=== PATIENT | female | born 1985 | race Caucasian/White ===

== ENCOUNTER 2023-01-27 09:36 | Observation (INO) | payer MEDICAID ==
[~2023-01-27] VITALS: Ht 154.9 cm; Wt 73.1 kg
[2023-01-27 10:07] LABS: HCG,QUAL RESULT NEGATIVE (NEGATIVE)
[2023-01-27] MEDS ORDERED: NS IRRIG SOLN 1000 ML IR ONE (11:16)
[2023-01-27] MEDS ORDERED: ONDANSETRON HCL 4 MG/2 ML VIAL ONE (11:16)
[2023-01-27] MEDS ORDERED: SEVOFLURANE 15 MIN GAS INH ONE (11:16)
[2023-01-27] MEDS ORDERED: METOCLOPRAMIDE HCL 10 MG/2 ML VIAL ONE (11:16)
[2023-01-27] MEDS ORDERED: PROPOFOL 200MG/ 20ML VIAL (DIPRIVAN) IV ONE (11:16)
[2023-01-27] MEDS ORDERED: LIDOCAINE/EPI 1% 1:100000 20 ML VIAL ONE (11:16)
[2023-01-27] MEDS ORDERED: LR 1,000 ML IV.SOLN IV ONE (11:16)
[2023-01-27] MEDS ORDERED: SUCCINYLCHOLINE CHLORIDE 20 MG/ML(QUELICIN) ONE (11:16)
[2023-01-27] MEDS ORDERED: KETOROLAC TROMETHAMINE 30 MG VIAL ONE (11:16)
[2023-01-27] MEDS ORDERED: ROCURONIUM BROMIDE 10 MG/ML (ZEMURON) ONE (11:16)
[2023-01-27] MEDS ORDERED: OXYMETAZOLINE HCL 0.05% NASAL SPRAY NS ONE (11:16)
[2023-01-27] MEDS ORDERED: MIDAZOLAM HCL 2 MG/2 ML VIAL (VERSED) ONE (11:16)
[2023-01-27] MEDS ORDERED: BACITRACIN ZINC 15 GM TOPICAL OINTMENT TP ONE (11:16)
[2023-01-27] MEDS ORDERED: WATER FOR IRRIGATION,STERILE 1,000 ML IRRIG.SOLN IR ONE (11:16)
[2023-01-27] MEDS ORDERED: fentaNYL CITRATE/PF 100 MCG/2 ML AMP ONE (11:16)
[2023-01-27] MEDS ORDERED: ONDANSETRON 4 MG ODT TAB PO PRN ×2 (14:15→18:45)
[2023-01-27] MEDS ORDERED: LR 1,000 ML IV SCH ×2 (14:15→23:45)
[2023-01-27] MEDS ORDERED: ONDANSETRON HCL 4 MG/2 ML VIAL IVP PRN ×4 (14:15→18:45)
[2023-01-27] MEDS ORDERED: HYDROcodone/ACETAMIN 5-325 MG TAB (NORCO/ VICODIN) PO PRN ×2 (14:15→18:45)
[2023-01-27] MEDS ORDERED: KETOROLAC TROMETHAMINE 30 MG VIAL IVP PRN (14:15)
[2023-01-27] MEDS ORDERED: HYDROmorphone 1 MG/ML INJ. CARTRIDGE IVP PRN (14:45)
[2023-01-27] MEDS ORDERED: HYDROmorphone 1 MG/ML INJ. CARTRIDGE ONE (14:58)
[2023-01-27] MEDS ORDERED: ACETAMINOPHEN 325 MG TABLET PO PRN ×2 (18:45→19:15)
[2023-01-27] MEDS ORDERED: KCL 20 mEq in D5/0.45NS 1000mL 1,000 ML IV SCH (20:00)
[2023-01-27 21:00] VITALS: BP_SYST 125; PULSE 95; RESP 18; TEMP 98.8; O2SAT 98
[2023-01-27] MEDS: HYDROcodone/ACETAMIN 5-325 MG TAB (NORCO/ VICODIN) PO PRN (21:25)
[2023-01-28] MEDS: SODIUM CHLORIDE 0.65% NASAL SPRAY NS SCH ×3 (00:43→09:00)
[2023-01-28 00:45] VITALS: BP_SYST 104; PULSE 107; RESP 18; TEMP 97.6; O2SAT 98
[2023-01-28 00:49] LABS: BASOPHILS % (AUTO) 0.2 % (0.0-2.0); HEMATOCRIT 34.9 % (36-48); HEMOGLOBIN 11.4 g/dL (12.0-16.0); LYMPHOCYTES # (AUTO) 1.7 K/uL (1.0-5.5); LYMPHOCYTES % (AUTO) 11.9 % (20.5-51.5); MEAN CORPUSCULAR HEMOGLOBIN 27 pg (27-31); MEAN CORPUSCULAR HGB CONC 33 % (32-36); MEAN CORPUSCULAR VOLUME 83 fL (79.0-98.0); MONOCYTES # (AUTO) 0.8 K/uL (0.0-1.0); MONOCYTES % (AUTO) 5.7 % (1.7-9.3); NEUTROPHILS # (AUTO) 11.6 K/uL (1.8-7.7); NEUTROPHILS % (AUTO) 82.2 % (40.0-70.0); PLATELET COUNT (AUTO) 257 K/uL (130-430); RED BLOOD CELL COUNT(AUTO) 4.22 MIL/uL (4.2-6.2); RED CELL DISTRIBUTION WIDTH 15.8 % (9.0-15.0); WHITE BLOOD COUNT (AUTO) 14.2 K/uL (4.8-10.8)
[2023-01-28 00:56] LABS: CALCIUM 8.9 mg/dL (8.4-11.0); CREATININE 0.67 mg/dL (0.55-1.30); POTASSIUM 3.7 mmol/L (3.5-5.1)
[2023-01-28] MEDS: HYDROcodone/ACETAMIN 5-325 MG TAB (NORCO/ VICODIN) PO PRN (06:11)
[2023-01-28 07:35] VITALS: BP_SYST 105; PULSE 115; RESP 18; TEMP 98.5; O2SAT 97
[2023-01-28 08:00] VITALS: O2SAT 96
[2023-01-28] MEDS ORDERED: 0.9126SP NS (10:27)
[2023-01-28 10:35] VITALS: BP_SYST 105; PULSE 115; RESP 16; TEMP 98.5; O2SAT 96
== END 2023-01-28 11:25 | disposition home or self-care (01) ==
LOC: SDS 09:36 → SMU 09:36 → SDS 09:37 → SMU 15:48
PROVIDERS: ADMIT Otolaryngology; ATTEND Otolaryngology
DX: J34.2 Deviated nasal septum (principal); J34.3 Hypertrophy of nasal turbinates; M95.0 Acquired deformity of nose; R42 Dizziness and giddiness; D72.829 Elevated white blood cell count, unspecified; D64.9 Anemia, unspecified; Z88.0 Allergy status to penicillin; Z79.899 Other long term (current) drug therapy
CPT/HCPCS: 87081; 30140; 30468; 96374; 30520; 82962; 84703; 96361; 80048; 85025; 36415; J1885; J2765; J3465; J2405; J2704; J0330; J3010; J1170; J7120; G0378 ×2; L8699

== ENCOUNTER 2023-10-06 06:43 | Day surgery (SDC) | payer MEDICAID, OTHER ==
[~2023-10-06] VITALS: Ht 154.9 cm; Wt 66.9 kg
[~2023-10-06 06:43] MED LIST: 0.9126SP NS
[2023-10-06] MEDS ORDERED: MEPERIDINE 100 MG INJ. 100 MG/ML VIAL ONE (07:57)
[2023-10-06] MEDS ORDERED: SIMETHICONE 40 MG/0.6 ML ML ONE (07:57)
[2023-10-06] MEDS ORDERED: MIDAZOLAM HCL 5 MG/5 ML VIAL ONE ×2 (07:57→09:36)
[2023-10-06 08:28] LABS: HCG,QUAL RESULT NEGATIVE (NEGATIVE)
[2023-10-06 11:17] VITALS: O2SAT 100
[2023-10-06 13:35] VITALS: BP_SYST 102; PULSE 129; RESP 17
== END 2023-10-06 11:24 | disposition home or self-care (01) ==
LOC: SDS 06:43 → SMU 06:44 → SDS 11:24
PROVIDERS: ATTEND Internal Medicine Gastroenterology
DX: K52.9 Noninfective gastroenteritis and colitis, unspecified (principal); K51.00 Ulcerative (chronic) pancolitis without complications; K62.5 Hemorrhage of anus and rectum; K64.8 Other hemorrhoids; D64.9 Anemia, unspecified; M19.90 Unspecified osteoarthritis, unspecified site; Z98.890 Other specified postprocedural states; Z88.0 Allergy status to penicillin; Z79.899 Other long term (current) drug therapy
CPT/HCPCS: 84703; 45380; 88305; 99152; 99153; G0378; J2250; J2175